=== PATIENT | female | born 1960 | race Caucasian/White ===

== ENCOUNTER 2022-05-25 22:14 | Inpatient (IN) ==
[2022-05-25] MEDS ORDERED: HYDROmorphone 1 MG/1 ML SYRINGE IV STA (22:38)
[2022-05-25] MEDS ORDERED: ONDANSETRON 4 MG/2 ML VIAL IV STA (22:38)
[2022-05-25] MEDS ORDERED: SODIUM CHLORIDE 0.9% 1,000 ML IV STA (22:38)
[2022-05-25 22:57] LABS: Basophils # 0.2 10*3/uL (0.0-0.2); Eosinophils # 3.9 10*3/uL (0.0-0.87); Eosinophils % 25.1 % (0.00-10.9); Hematocrit 37.3 VOL% (35.7-47.0); Hemoglobin 12.5 GM/DL (12.0-16.0); Immature Granulocytes % 0.8 %; Immature Granulocytes Absolute 0.12 #; Lymphocytes # 2.5 10*3/uL (1.4-4.0); Lymphocytes % 15.9 % (21.3-54.2); Mean Corpuscular HGB Conc 33.5 GM/DL (32-36); Mean Corpuscular Volume 91.6 FL (87-102); Mean Platelet Volume 13.5 FL (9.6-12.0); Monocytes % 6.7 % (1.7-12.7); Neutrophils % 50.5 % (38.7-73.9); Platelet Count 218 T/CUMM (130-400); Red Blood Count 4.07 MC/CUMM (3.8-5.5); White Blood Count 15.5 T/CUMM (4-12)
[2022-05-25 23:07] LABS: INR 1.2; PT Patient Result 12.8 SECS (10.1-12.1); Partial Thromboplastin Time 32.8 SECS (23.7-32.9)
[2022-05-25 23:29] LABS: Albumin 3.7 G/DL (3.4-5.0); Calcium 10.5 MG/DL (8.5-10.1); Osmolality,Calculated 271.8 MOS/KG (273-304); Potassium 3.8 MMOL/L (3.5-5.1); Total Protein 6.7 G/DL (6.4-8.2)
[2022-05-25 23:35] LABS: Bilirubin,Total 24.5 MG/DL (0.20-1.00)
[2022-05-26] LABS: Bacteria,Urine Occasional /HPF (Few); Hyaline Casts,Urine 1 /LPF (0-3); Mucus,Urine Occasional /LPF (Occasional); RBC,Urine 2 /HPF (0-4); Squamous Epithelial Cell,Urine Occasional /HPF (0-10)
[2022-05-26 00:01] LABS: Urine Appearance Clear (Clear); Urine Color Yellow (Yellow)
[2022-05-26 00:02] LABS: Bilirubin,Urine Large mg/dL (Negative); Blood, Urine Trace mg/dL (Negative); Glucose,Urine (UA) Negative (Negative); Ketones,Urine Negative (Negative); Nitrite,Urine Negative (Negative); Protein,Urine Negative (Negative); Urine Specific Gravity 1.015 (1.001-1.035); Urine Urobilinogen 0.2 eU/dL (<2.0); Urine pH 5.5 (4.5-8.0)
[2022-05-26 00:06] LABS: Barbiturates Screen,Urine Negative (Negative); Benzodiazepines Screen,Urine Negative (Negative); Cannabinoid Screen,Urine Negative (Negative); Opiate Screen,Urine Negative (Negative); Phencyclidine Screen,Urine Negative (Negative)
[2022-05-26] MEDS ORDERED: SODIUM CHLORIDE 0.9% 1,000 ML IV STA (01:02)
[2022-05-26] MEDS ORDERED: HYDROmorphone 1 MG/1 ML SYRINGE IV STA (01:02)
[2022-05-26 01:13] LABS: Hepatitis B Core IgM Quant 0.05 Index; Hepatitis B Surface Ag Quant < 0.10 Index; Hepatitis B Surface Ag Result Non-Reactive (NonReactive); Hepatitis C Virus Ab Quant 0.03 Index; Hepatitis C Virus Ab Result Non-Reactive (NonReactive)
[2022-05-26 01:45] LABS: HIV Antigen/Antibody Result Nonreactive (Nonreactive)
[2022-05-26 01:47] LABS: Eosinophils 26 % (0-10); Lymphocytes 17 % (20-55); Platelet Estimate Normal; Target Cells 1+; Total Cells Counted 100
[2022-05-26] MEDS ORDERED: ACETAMINOPHEN 325 MG TABLET PO PRN (02:15)
[2022-05-26] MEDS ORDERED: hydrALAZINE 20 MG/1 ML VIAL IV PRN (02:15)
[2022-05-26] MEDS ORDERED: HYDROmorphone 1 MG/1 ML SYRINGE IV PRN ×2 (02:15→02:31)
[2022-05-26] MEDS: SODIUM CHLORIDE 0.9% 1,000 ML IV SCH ×3 (04:10→20:43)
[2022-05-26] MEDS: cefTRIAXone 1,000 MG in SODIUM CHLORIDE 0.9% 100 ML IV SCH (04:19)
[2022-05-26] MEDS: metroNIDAZOLE INJ 500 MG/100 ML PREMIX IV SCH ×3 (05:00→20:42)
[2022-05-26 05:58] LABS: Basophils # 0.1 10*3/uL (0.0-0.2); Basophils % 0.9 % (0.0-0.8); Eosinophils # 4.1 10*3/uL (0.0-0.87); Eosinophils % 30.3 % (0.00-10.9); Hematocrit 32.3 VOL% (35.7-47.0); Immature Granulocytes % 0.7 %; Immature Granulocytes Absolute 0.09 #; Lymphocytes % 14.5 % (21.3-54.2); Mean Corpuscular HGB Conc 34.1 GM/DL (32-36); Mean Corpuscular Volume 91.8 FL (87-102); Mean Platelet Volume 12.9 FL (9.6-12.0); Monocytes % 7.4 % (1.7-12.7); Neutrophils % 46.2 % (38.7-73.9); Platelet Count 196 T/CUMM (130-400); Red Blood Count 3.52 MC/CUMM (3.8-5.5); White Blood Count 13.5 T/CUMM (4-12)
[2022-05-26 06:20] LABS: Eosinophils 24 % (0-10); Lymphocytes 16 % (20-55); Metamyelocytes 1 %; Total Cells Counted 100
[2022-05-26 06:21] LABS: Microcytosis 1+; Target Cells 1+
[2022-05-26 06:22] LABS: Hypochromia Slight
[2022-05-26 06:32] LABS: Alanine Aminotransferase 961 U/L (13-56); Albumin 2.7 G/DL (3.4-5.0); Alkaline Phosphatase 1273 U/L (45-117); Aspartate Amino Transferase 660 U/L (0-37); Blood Urea Nitrogen 41 MG/DL (7-18); Calcium 9.6 MG/DL (8.5-10.1); Carbon Dioxide 21 MMOL/L (21-32); Chloride 107 MMOL/L (98-107); Cholesterol 380 MG/DL (50-200); Glucose 93 MG/DL (74-106); HDL Cholesterol < 10 MG/DL (40-60); Osmolality,Calculated 275.4 MOS/KG (273-304); Potassium 3.6 MMOL/L (3.5-5.1); Sodium 133 MMOL/L (136-145); Total Protein 5.8 G/DL (6.4-8.2); Triglycerides 157 MG/DL (2-150); VLDL Cholesterol 31.4 MG/DL
[2022-05-26] MEDS: ONDANSETRON 4 MG/2 ML VIAL IV PRN ×2 (07:57→14:05)
[2022-05-26] MEDS: HYDROmorphone 1 MG/1 ML SYRINGE IV PRN (14:04)
[2022-05-27] MEDS: ONDANSETRON 4 MG/2 ML VIAL IV PRN ×2 (00:17→15:21)
[2022-05-27] MEDS: HYDROmorphone 1 MG/1 ML SYRINGE IV PRN ×3 (00:21→17:21)
[2022-05-27] MEDS: metroNIDAZOLE INJ 500 MG/100 ML PREMIX IV SCH ×3 (04:43→21:33)
[2022-05-27 05:12] LABS: Basophils # 0.1 10*3/uL (0.0-0.2); Eosinophils # 3.3 10*3/uL (0.0-0.87); Eosinophils % 31.9 % (0.00-10.9); Hematocrit 29.6 VOL% (35.7-47.0); Immature Granulocytes % 0.4 %; Immature Granulocytes Absolute 0.04 #; Lymphocytes # 1.5 10*3/uL (1.4-4.0); Lymphocytes % 14.2 % (21.3-54.2); Mean Corpuscular HGB Conc 33.8 GM/DL (32-36); Mean Corpuscular Volume 92.5 FL (87-102); Mean Platelet Volume 13.2 FL (9.6-12.0); Monocytes # 0.8 10*3/uL (0.11-0.8); Monocytes % 7.6 % (1.7-12.7); Neutrophils % 44.9 % (38.7-73.9); Platelet Count 198 T/CUMM (130-400); Red Cell Distribution Width 19.7 % (9.3-17.3); White Blood Count 10.2 T/CUMM (4-12)
[2022-05-27 05:24] LABS: INR 1.1; PT Patient Result 12.4 SECS (10.1-12.1)
[2022-05-27 05:34] LABS: Eosinophils 34 % (0-10); Lymphocytes 20 % (20-55); Platelet Estimate Adequate; Total Cells Counted 100
[2022-05-27 05:35] LABS: Hypochromia Slight; Target Cells Slight
[2022-05-27 05:46] LABS: Albumin 2.5 G/DL (3.4-5.0); Bilirubin,Direct 15.2 MG/DL (0.0-0.20); Calcium 9.2 MG/DL (8.5-10.1); Thyroid Stimulating Hormone 1.46 uIU/ml (0.358-3.74); Total Protein 5.4 G/DL (6.4-8.2)
[2022-05-27 05:49] LABS: Bilirubin,Indirect 3.3 MG/DL (0.0-1.0); Bilirubin,Total 18.5 MG/DL (0.20-1.00)
[2022-05-27] MEDS ORDERED: MAGNESIUM SULF RIDER 2 GM/50 ML PREMIX IV ONE (06:00)
[2022-05-27] MEDS: cefTRIAXone 1,000 MG in SODIUM CHLORIDE 0.9% 100 ML IV SCH (08:29)
[2022-05-27] MEDS ORDERED: INDOMETHACIN SUPP 50 MG SUPP RECTAL ONE (08:47)
[2022-05-27] MEDS: SODIUM CHLORIDE 0.9% 1,000 ML IV SCH ×2 (09:35→18:03)
[2022-05-27] MEDS ORDERED: SEVOFLURANE 1 UNIT/15 MINUTE INH ONE (13:23)
[2022-05-27] MEDS ORDERED: propofoL 200 MG/20 ML VIAL IV ONE (13:23)
[2022-05-27] MEDS ORDERED: ROCURONIUM 50 MG/5 ML VIAL IV ONE (13:23)
[2022-05-27] MEDS ORDERED: LIDOCAINE 2% 5 ML VIAL ONE (13:23)
[2022-05-27] MEDS ORDERED: PHENYLEPHRINE 1 MG/10 ML SYRINGE IV ONE ×3 (13:23→14:34)
[2022-05-27] MEDS ORDERED: SUCCINYLCHOLINE 200 MG/10 ML VIAL ONE (13:23)
[2022-05-27] MEDS ORDERED: fentaNYL 100 MCG/2 ML VIAL ONE (13:28)
[2022-05-27] MEDS ORDERED: MIDAZOLAM 2 MG/2 ML VIAL ONE (13:28)
[2022-05-27] MEDS ORDERED: LACTATED RINGERS 1,000 ML IV SCH (14:20)
[2022-05-27 14:47] LABS: Smooth Muscle Antibody Negative (Negative)
[2022-05-27 19:11] LABS: Antinuclear Ab, S 0.1 U
[2022-05-28] MEDS: HYDROmorphone 1 MG/1 ML SYRINGE IV PRN ×2 (01:18→12:39)
[2022-05-28 05:24] LABS: Basophils # 0.1 10*3/uL (0.0-0.2); Basophils % 0.7 % (0.0-0.8); Eosinophils # 1.2 10*3/uL (0.0-0.87); Hematocrit 28.6 VOL% (35.7-47.0); Hemoglobin 9.5 GM/DL (12.0-16.0); Immature Granulocytes % 1.3 %; Immature Granulocytes Absolute 0.12 #; Lymphocytes # 1.5 10*3/uL (1.4-4.0); Lymphocytes % 17.1 % (21.3-54.2); Mean Corpuscular HGB Conc 33.2 GM/DL (32-36); Mean Corpuscular Volume 92.9 FL (87-102); Monocytes # 0.6 10*3/uL (0.11-0.8); Neutrophils % 60.9 % (38.7-73.9); Platelet Count 208 T/CUMM (130-400); Red Blood Count 3.08 MC/CUMM (3.8-5.5); Red Cell Distribution Width 19.8 % (9.3-17.3)
[2022-05-28 05:45] LABS: Band Neutrophils 1 % (0-10); Eosinophils 18 % (0-10); Hypochromia 1+; Lymphocytes 15 % (20-55); Platelet Estimate Adequate; Total Cells Counted 100
[2022-05-28 05:46] LABS: Target Cells Slight
[2022-05-28 06:00] LABS: Albumin 2.3 G/DL (3.4-5.0); Bilirubin,Direct 7.39 MG/DL (0.0-0.20); Bilirubin,Indirect 1.5 MG/DL (0.0-1.0); Bilirubin,Total 8.9 MG/DL (0.20-1.00); Calcium 8.9 MG/DL (8.5-10.1); Osmolality,Calculated 277.7 MOS/KG (273-304); Potassium 3.7 MMOL/L (3.5-5.1); Total Protein 5.5 G/DL (6.4-8.2)
[2022-05-28] MEDS: metroNIDAZOLE INJ 500 MG/100 ML PREMIX IV SCH ×3 (06:01→21:40)
[2022-05-28] MEDS: SODIUM CHLORIDE 0.9% 1,000 ML IV SCH ×2 (06:02→17:17)
[2022-05-28] MEDS: cefTRIAXone 1,000 MG in SODIUM CHLORIDE 0.9% 100 ML IV SCH (09:42)
[2022-05-29] MEDS: HYDROmorphone 1 MG/1 ML SYRINGE IV PRN ×3 (01:57→23:43)
[2022-05-29] MEDS: ONDANSETRON 4 MG/2 ML VIAL IV PRN ×3 (02:01→23:42)
[2022-05-29 04:58] LABS: Basophils # 0.1 10*3/uL (0.0-0.2); Basophils % 0.7 % (0.0-0.8); Eosinophils # 1.2 10*3/uL (0.0-0.87); Hematocrit 27.7 VOL% (35.7-47.0); Hemoglobin 8.9 GM/DL (12.0-16.0); Immature Granulocytes % 1.4 %; Immature Granulocytes Absolute 0.13 #; Lymphocytes # 2.1 10*3/uL (1.4-4.0); Lymphocytes % 21.9 % (21.3-54.2); Mean Corpuscular HGB Conc 32.1 GM/DL (32-36); Mean Corpuscular Volume 95.5 FL (87-102); Mean Platelet Volume 12.4 FL (9.6-12.0); Monocytes # 0.8 10*3/uL (0.11-0.8); Monocytes % 8.8 % (1.7-12.7); Neutrophils % 55.2 % (38.7-73.9); Platelet Count 222 T/CUMM (130-400); Red Cell Distribution Width 18.9 % (9.3-17.3); White Blood Count 9.6 T/CUMM (4-12)
[2022-05-29 05:21] LABS: Eosinophils 10 % (0-10); Hypochromia Slight; Lymphocytes 22 % (20-55); Myelocytes 1 %; Total Cells Counted 100
[2022-05-29 05:22] LABS: Anisocytosis 1+; Microcytosis 1+; Target Cells Few
[2022-05-29 05:23] LABS: Platelet Estimate Normal; Stomatocytes Slight
[2022-05-29 05:42] LABS: Albumin 2.4 G/DL (3.4-5.0); Bilirubin,Direct 3.81 MG/DL (0.0-0.20); Bilirubin,Indirect 0.9 MG/DL (0.0-1.0); Bilirubin,Total 4.7 MG/DL (0.20-1.00); Osmolality,Calculated 280.3 MOS/KG (273-304); Potassium 3.2 MMOL/L (3.5-5.1); Total Protein 5.4 G/DL (6.4-8.2)
[2022-05-29] MEDS: SODIUM CHLORIDE 0.9% 1,000 ML IV SCH ×2 (05:51→09:57)
[2022-05-29] MEDS: metroNIDAZOLE INJ 500 MG/100 ML PREMIX IV SCH ×3 (05:51→21:06)
[2022-05-29] MEDS: cefTRIAXone 1,000 MG in SODIUM CHLORIDE 0.9% 100 ML IV SCH (08:37)
[2022-05-30] MEDS: SODIUM CHLORIDE 0.9% 1,000 ML IV SCH (02:54)
[2022-05-30] MEDS: metroNIDAZOLE INJ 500 MG/100 ML PREMIX IV SCH (05:03)
[2022-05-30 05:09] VITALS: BP 123/62
== END 2022-05-30 06:45 | disposition home or self-care (01) | DRG 435 ==
LOC: N.ED 22:14 → N.EDINP 05-26 02:15 → N.5E 05-26 03:10
PROVIDERS: ADMIT Internal Medicine; ATTEND Internal Medicine